=== PATIENT | female | born 1945 | race Caucasian/White ===

== ENCOUNTER 2024-01-03 00:51 | Inpatient (IN) ==
[2024-01-03] MEDS: Morphine 4 MG/ML VIAL (1 ml) IV ONE (01:14)
[2024-01-03 01:36] LABS: ABS Lymphocytes 1.6 10^3/uL (1.0-4.8); ABS Monocytes 0.5 10^3/uL (0.0-0.9); ABS Neutrophils 6.1 10^3/uL (1.5-7.6); ABS Nucleated RBC 0.01 10^3/ul; Eosinophil % 0.6 %; Hematocrit 38.6 % (35-45); Hemoglobin 13.2 g/dL (11.5-14.3); Lymphocyte % 19.7 %; Mean Corpuscular Hemoglobin 31.6 pg (27-33); Mean Corpuscular Hgb Conc 34.1 g/dL (31-36); Mean Corpuscular Volume 92.7 fL (80-97); Mean Platelet Volume 9.7 fL (7.5-11.2); Nucleated Red Blood Cells % 0.1 %/100WBC (0.0-0.8); Platelet Count 189 10^3/uL (150-450); Red Blood Count 4.16 10^6/uL (3.63-4.92); Red Cell Distribution Width 13.3 % (12-17); White Blood Count 8.4 10^3/uL (3.8-11.8)
[2024-01-03 01:39] LABS: Activated Partial Thrombo Time 26.6 seconds (26.0-38.0); INR 0.95 (0.83-1.13)
[2024-01-03] MEDS: Lactated Ringers 1000 ml BAG 1,000 ML IV ONE (01:39)
[2024-01-03] MEDS: Al Hydrox/Mg Hydrox/Simet LIQ 30 ML UDC PO ONE (01:57)
[2024-01-03 02:08] LABS: Albumin 4.3 g/dL (3.2-5.2); Albumin/Globulin Ratio 1.9 (1-3); Calcium 9.2 mg/dL (8.6-10.3); Creatinine, Serum 0.9 mg/dL (0.51-0.95); Globulin 2.3 g/dL (2-4); Potassium 3.9 mmol/L (3.5-5.0); Total Bilirubin 0.4 mg/dL (0.2-1.0); Total Protein 6.6 g/dL (6.4-8.9); eGFR CKD-EPI 66.3 (>60)
[2024-01-03] MEDS: Morphine 4 MG/ML VIAL (1 ml) IV PRN ×2 (02:24→08:42)
[2024-01-03] MEDS ORDERED: Morphine 4 MG/ML VIAL (1 ml) IV PRN (03:46)
[2024-01-03 04:43] LABS: High Sensitivity Troponin 1 Hr 4 pg/mL (<15)
[2024-01-03] MEDS: Cholecalciferol (VIT D3) 1,000 unit TAB PO SCH (10:55)
[2024-01-03] MEDS ORDERED: Naloxone 0.4 mg VIAL 0.4 mg/ml 1 ml VIAL IV PRN (12:27)
[2024-01-03] MEDS ORDERED: Ondansetron 4 mg VIAL 2 MG/ML 2 ml VIAL IV PRN (12:27)
[2024-01-03] MEDS ORDERED: fentaNYL 100 mcg/2 ml 50 MCG/ML VIAL IV PRN (12:27)
[2024-01-03] MEDS ORDERED: Metoclopramide 5 MG/ML VIAL (10 mg) IV PRN (12:27)
[2024-01-03] MEDS ORDERED: ROPIVACAINE 5 MG/ML 30 ML BTL (0.5%) ONE (12:58)
[2024-01-03] MEDS ORDERED: NS 0.45% 1000 ml BAG 1,000 ML IV SCH (13:00)
[2024-01-03] MEDS ORDERED: ceFAZolin 2 GM PREMIX 2 GM/50 ML BAG ONE (13:16)
[2024-01-03] MEDS ORDERED: fentaNYL 100 mcg/2 ml 50 MCG/ML VIAL ONE (13:31)
[2024-01-03] MEDS ORDERED: Rocuronium 50 mg VIAL 10 mg/ml 5 ml VIAL (50 mg) ONE (13:33)
[2024-01-03] MEDS ORDERED: Tranexamic Acid 1 GM/100ML BAG 2,000 MG/200 ML BAG IV ONE (13:36)
[2024-01-03] MEDS ORDERED: Magnesium Hydroxide LIQ 30 ML UDC PO PRN (16:00)
[2024-01-03] MEDS ORDERED: Lactulose 30 ml UDC PO PRN (16:00)
[2024-01-03] MEDS: ceFAZolin 1 GM ADVAN 1 GM in NS 0.9% 50 ML 50 ML IVPB SCH ×2 (18:17→22:27)
[2024-01-03] MEDS: Buffered Lidocaine 1% SYRIN 1 ml INTRADERM ONE (18:32)
[2024-01-03] MEDS: Scopolamine 1 mg/72hr PATCH TRANSDERM ONE (18:32)
[2024-01-03] MEDS: Acetaminophen IV 1 GM/100ML 1,000 MG/100 ML BAG IV ONE (18:32)
[2024-01-03] MEDS: Lactated Ringers 1000 ml BAG 1,000 ML IV SCH (18:33)
[2024-01-03] MEDS: D5W 1/2 NS 1000 ml BAG 1,000 ML IV SCH (19:07)
[2024-01-03] MEDS: Magnesium Hydroxide LIQ 30 ML UDC PO SCH (20:33)
[2024-01-04 04:50] LABS: Urine Appearance Clear; Urine Bilirubin Negative (Negative); Urine Blood Negative (Negative); Urine Color Colorless; Urine Glucose Negative (Negative); Urine Ketones Negative (Negative); Urine Nitrite Negative (Negative); Urine Protein Negative (Negative); Urine Specific Gravity 1.008 (1.002-1.030); Urine Urobilinogen Negative (Negative)
[2024-01-04 05:05] LABS: Urine Bacteria Absent /HPF (Absent); Urine Red Blood Cell Absent /HPF (0-Trace); Urine White Blood Cell Trace(0-5/hpf) /HPF (0-Trace)
[2024-01-04 05:54] LABS: Hematocrit 32.6 % (35-45); Hemoglobin 11.2 g/dL (11.5-14.3); Mean Platelet Volume 9.3 fL (7.5-11.2); Platelet Count 140 10^3/uL (150-450)
[2024-01-04 06:33] LABS: Calcium 8.2 mg/dL (8.6-10.3); Creatinine, Serum 0.73 mg/dL (0.51-0.95); Potassium 4.5 mmol/L (3.5-5.0); eGFR CKD-EPI 85.2 (>60)
[2024-01-04] MEDS: Vitamin THERAPEUTIC TAB PO SCH (07:53)
[2024-01-04] MEDS ORDERED: Calcium Carb (TUMS) 500 mg CHEW TAB PO PRN (09:53)
[2024-01-05] MEDS: Prochlorperazine 5 mg/ml 2 ml VIAL (10 mg) IV PRN (02:42)
[2024-01-05 05:18] LABS: Hematocrit 31.5 % (35-45); Hemoglobin 10.8 g/dL (11.5-14.3); Mean Platelet Volume 9.1 fL (7.5-11.2); Platelet Count 140 10^3/uL (150-450)
[2024-01-06 06:01] VITALS: BP 154/85
[2024-01-06 06:23] LABS: Hematocrit 32.3 % (35-45); Hemoglobin 11.1 g/dL (11.5-14.3); Mean Platelet Volume 9.5 fL (7.5-11.2); Platelet Count 152 10^3/uL (150-450)
[2024-01-06 12:10] LABS: Rapid COVID-19 Molecular Undetected (Undetected)
== END 2024-01-06 15:06 | DRG 522 ==
LOC: EDHOLD 00:51 → ED 00:51 → SUATTDRO 03:42 → OBSVTOIN 03:42 → SUATTDRO 03:44 → AA 12:06 → SSU 18:08
PROVIDERS: ADMIT Internal Medicine; ATTEND Student in an Organized Health Care Education/Training Program